=== PATIENT | female | born 1960 | race Caucasian/White ===

== ENCOUNTER 2020-08-21 08:56 | Emergency (ER) | payer OTHER ==
[2020-08-21] MEDS ORDERED: TETANUS AND DIPHTHERIA TOXOID 0.5 ML DISP.SYRIN IM ONE (09:07)
[2020-08-21] MEDS ORDERED: DIPHTH,PERTUSS(ACELL),TET 0.5 ML DISP.SYRIN IM ONE ×2 (09:12→10:02)
[2020-08-21 09:18] VITALS: BP 151/84; PULSE 90; TEMP 98; BMI 23.6
[2020-08-21 10:06] LABS: BASO % 1.1 % (0-2.0); EOS % 4.6 % (0-4.5); HEMATOCRIT 40.2 % (32.4-45.2); HEMOGLOBIN 13.8 GM/dL (10.7-15.3); MCH 34.1 pg (25.7-33.7); MCHC 34.4 g/dl (32.0-36.0); MEAN CELL VOLUME 99.2 fl (80-96); MEAN PLT VOLUME 7.6 fl (7.5-11.1); MONO % 8.5 % (3.8-10.2); NEUT % 47.8 % (42.8-82.8); PLATELET COUNT 327 K/MM3 (134-434); RBC 4.05 M/mm3 (3.60-5.2); RDW 12.7 % (11.6-15.6); WHITE BLOOD COUNT 6.8 K/mm3 (4.0-10.0)
[2020-08-21 10:25] LABS: BLOOD UREA NITROGEN 11.1 mg/dL (7-18)
[2020-08-21 10:27] LABS: CREATININE 0.7 mg/dL (0.55-1.3); URIC ACID 3.7 mg/dL (2.6-7.2)
[2020-08-21 10:28] LABS: PHOSPHOROUS 4.2 mg/dL (2.5-4.9)
[2020-08-21 10:29] LABS: TOT PROT 7.5 g/dl (6.4-8.2)
[2020-08-21 10:30] LABS: BILIRUBIN,TOTAL 0.5 mg/dL (0.2-1)
[2020-08-21 10:40] LABS: CALCIUM 9.6 mg/dL (8.5-10.1)
[2020-08-21 11:48] LABS: HIV INTERPRETATION NEGATIVE (NEGATIVE)
== END 2020-08-21 09:34 | disposition home or self-care (01) ==
LOC: JER 08:56
PROC: 3E0234Z Introduction of Serum, Toxoid and Vaccine into Muscle, Percutaneous Approach (ICD-10-PCS; principal; 2020-08-21)
DX: S61.431A Puncture wound without foreign body of right hand, initial encounter (principal); W46.1XXA Contact with contaminated hypodermic needle, initial encounter; Z77.21 Contact with and (suspected) exposure to potentially hazardous body fluids
CPT/HCPCS: 36415; 80053; 82465; 82977; 83615; 84100; 84478; 84550; 85025; 86317; 86704; 86706; 86803; 87340; 87389; 90715; 99283-25